=== PATIENT | male | born 1950 | race Caucasian/White ===

== ENCOUNTER 2024-06-01 06:12 | Emergency (ER) | payer MEDICARE, SELFPAY ==
[2024-06-01 06:15] VITALS: BP 173/72; PULSE 69; RESP 18; TEMP 36.6; O2SAT 99; BMI 24.0
[2024-06-01 06:32] LABS: Bacteria 0 SEEN /hpf (None Seen); Mucous, Urine 0 SEEN /hpf (<or=2+); Squamous Epithelial Cells - UA 0 SEEN /hpf (0-5); White Blood Cells 0 SEEN /hpf (0-5)
[2024-06-01 06:35] LABS: Color, Urine Yellow (Yellow); Glucose, Dipstick Normal (Normal); Ketone-Dipstick Negative (Negative); Leukocyte Esterase-Dipstick Negative /ul (Negative); Nitrite-Dipstick Negative (Negative); Occult Blood-Urine Negative /ul (Negative); Protein-Dipstick 15 mg/dl (Negative); Urine Bilirubin Dipstick Negative (Negative); Urine Clarity Clear (Clear); Urine Urobilinogen Normal (Normal)
--- NOTE | 2024-06-01 07:27 | EDS_ITS ---
HPI History of Present Illness Chief Complaint: Complaint Informant: patient Narrative Narrative: Patient is a 73-year-old male with history of BPH previously on finasteride but stopped secondary to side effect of constipation, presenting with lower abdominal discomfort, feeling that he needs to urinate and inability to urinate. Patient states he urinated before he went to bed last night but throughout the night could only dribble even though he felt that he needed to urinate further. Denies any dysuria. Denies any hematuria. Denies any recent fever or chills. Notes that over the past few days he has had weaker stream and sensation of incomplete emptying with urinary frequency. Notes over the past week he has been more active with using a chainsaw to cut wood including trees and has been having some back pain. That is worse with movement. Denies any other complaints at this time. Previously seeing urology with Ever Chambers. [facility] Medical History Enlarged prostate Home Medications ?Medication ?Instructions ?Recorded ?Last Taken ?Type NK 06/01/24 Unknown History Allergy/AdvReac Type Severity Reaction Status Date / Time meperidine (From Demerol) Allergy Other Verified 06/01/24 06:14 Surgical History Hx of shoulder surgery Social History Smoking Status: Former smoker ROS ROS ED Constitutional Constitutional ED: Denies chills or fever(s) Gastrointestinal Gastrointestinal: Reports abdominal pain; Denies nausea or vomiting Genitourinary Genitourinary ED: Reports urinary frequency and other Details: Difficulty urinating, weak stream, dribbling ; Denies dysuria or hematuria Musculoskeletal Musculoskeletal: Reports back pain; Denies arthralgias or myalgias Neurologic Neurologic: Denies paresthesias or weakness Hematologic/Lymphatic Hematologic/Lymphatic: Denies easy bleeding or easy bruising EXAM Physical Exam Const Vital Signs: 06/01/24 06:15 Temperature 97.8 F Temperature Source Oral Pulse Rate 69 Respiratory Rate 18 Blood Pressure 173/72 H Blood Pressure Mean 105 Pulse Ox 99 Oxygen Delivery Method Room Air Positive well nourished and well developed General Appearance ED: well developed and NAD HEENT Reports moist mucous membranes Neck supple Resp normal respiratory effort Cardio regular rate and regular rhythm GI non-tender Inspection: abdominal distention Palpation: soft Narrative: Nicole catheter in place. 1200 cc of yellow urine present. Extremity normal to inspection Neuro oriented x3 Sensorium / Orientation: alert Motor Exam: Negative for no movement abnormalities noted Psych mental status grossly normal Skin Lesions: no lesions Rashes: no rashes MDM MDM MDM Narrative Medical decision making narrative: Patient evaluated for acute urinary retention. Was quickly evaluated by nursing staff and found to have over 500 cc of urine and Nicole catheter placed. Patient had immediate/significant improvement of symptoms and discomfort. Has over 1200 cc of urine out. Urinalysis not consistent with infection. Will obtain a BMP to ensure that he does not have an MARCE associated this urine intention. I suspect there is component of acute on chronic urinary retention. Anticipate if kidney function is normal can be discharged home with Nicole catheter instructions and outpatient urology follow-up. Will be given referral to Dr. Camarena. Given return precautions. Patient verbalized agreement understand this plan. Lab Data Labs: Laboratory Results - last 24 hr 06/01/24 06:26 Urine Color Yellow Urine Clarity Clear Urine pH 7.0 Ur Specific [place] 1.010 Urine Protein 15 H Urine Glucose (UA) Normal Urine Ketones Negative Urine Occult Blood Negative Urine Nitrite Negative Urine Bilirubin Negative Urine Urobilinogen Normal Ur Leukocyte Esterase Negative Discharge Plan Triage Chief Complaint: Complaint ED Provider: Zahraa Mendes Dx/Rx/DC Orders Clinical Impression: Acute urinary retention Instructions: ED Nicole Catheter, Care, ED Urinary Retention, Male Prescriptions: No Action NK Primary Care Provider: Cricket Guillen Referrals: Cricket Guillen MD [Primary Care Provider] - August Camarena MD [Med Staff - Active Staff] - Activity Restrictions/Additional Instructions: Please call urology for close outpatient follow-up early next week. Generally the Nicole catheter needs to stay in place for around 5 days and sometimes longer to allow for inflammation of the prostate and bladder to go down. Please follow-up with urology and if you cannot get into urology you may follow-up with your primary care doctor for removal of Nicole catheter. Print Language: [place]ayan Disposition Disposition: Home, Self Care
[2024-06-01 07:54] LABS: Red Blood Cells-Urine 0 SEEN /hpf (0-5)
[2024-06-01 08:01] LABS: Anion Gap 11 (5-15); BUN 16 mg/dL (4-19); BUN/Creat Ratio 14.8 RATIO (10-20); Carbon Dioxide 24.3 mmol/L (21.0-32.0); Chloride 102 mmol/L (98-108); Creatinine, Serum 1.05 mg/dL (0.70-1.20); EST Glomerular Filtration Rate 75 (>60); Estimated Creatinine Clearance 67.73 ml/min (50-250); Glucose 133 mg/dL (70-99); Potassium 4.3 mmol/L (3.3-5.1); Sodium Level 137 mmol/L (133-145)
[2024-06-01 08:13] VITALS: BP 145/71; PULSE 56; O2SAT 99
[2024-06-01 08:17] VITALS: BP 145/71; PULSE 56; RESP 18; TEMP 36.6; O2SAT 99
== END 2024-06-01 08:35 | disposition home or self-care (01) ==
PROVIDERS: Emergency Provider Emergency Medicine; PCP Family Medicine; Visit Provider Emergency Medicine
DX: N40.1 Benign prostatic hyperplasia with lower urinary tract symptoms (principal); R33.8 Other retention of urine; R35.0 Frequency of micturition; M54.9 Dorsalgia, unspecified; Z87.891 Personal history of nicotine dependence
CPT/HCPCS: 51702; 80048; 81001; 99284; A4216

== ENCOUNTER 2024-06-01 11:37 | Emergency (ER) | payer MEDICARE, SELFPAY ==
[2024-06-01 11:38] VITALS: BP 170/86; PULSE 69; RESP 15; TEMP 36.8; O2SAT 97; BMI 23.7
--- NOTE | 2024-06-01 12:03 | EX.ED.DYSGE1 ---
HPI History of Present Illness Chief Complaint: Nicole C/O Informant: patient Onset/Context/Timing Onset: Today Context: Gradual Onset Timing: Continuous Quality: Burning Location: Suprapubic area Worsened by: Nothing Relieved by: Nothing Narrative Narrative: Patient presents with discomfort from his Nicole catheter. Patient was seen here earlier this morning and had a Nicole catheter placed for urinary retention. Patient states that when he left he felt like the catheter was pulling. Patient noted some discoloration of the urine. Patient felt a burning sensation over his bladder area. Patient states that catheter was still draining. Patient denies any fevers or chills. Patient denies any other complaints. [facility] Medical History Enlarged prostate Home Medications ?Medication ?Instructions ?Recorded ?Last Taken ?Type NK 06/01/24 Unknown History Allergy/AdvReac Type Severity Reaction Status Date / Time meperidine (From Demerol) Allergy Other Verified 06/01/24 11:39 Surgical History Hx of shoulder surgery Social History Smoking Status: Former smoker ROS ROS ED Constitutional Constitutional ED: Denies chills or fever(s) Eyes Eyes: Denies blurry vision or change in vision ENT ENT ED: Denies rhinorrhea or sore throat Cardiovascular Cardiovascular: Denies chest pain or palpitations Respiratory/Chest Respiratory/Chest: Denies cough or dyspnea Gastrointestinal Gastrointestinal: Denies nausea or vomiting Genitourinary Genitourinary ED: Reports dysuria and hematuria Musculoskeletal Musculoskeletal: Denies back pain or neck pain Integumentary Denies abscess or rash Neurologic Neurologic: Denies headache(s) or weakness Allergic/Immunologic Allergic/Immunologic ED: Denies mouth swelling or urticaria EXAM Physical Exam Const Vital Signs: 06/01/24 11:38 Temperature 98.2 F Temperature Source Temporal Pulse Rate 69 Respiratory Rate 15 Blood Pressure 170/86 H Blood Pressure Mean 114 Pulse Ox 97 Oxygen Delivery Method Room Air Positive well nourished and well developed General Appearance ED: well developed and NAD HEENT Reports moist mucous membranes Neck supple and no JVD GI non-distended Palpation: soft and tender suprapubic; Negative for guarding or rebound tenderness present Neuro oriented x3, CN's II-XII intact bilaterally and no sensory deficits noted Sensorium / Orientation: alert Motor Exam: strength 5/5 throughout Psych mental status grossly normal MDM MDM MDM Narrative Medical decision making narrative: The catheter and leg bag were readjusted. Patient was feeling better after this. Urine continued to flow into the bag. Patient was feeling better on reevaluation. Patient was instructed to follow-up with urology as scheduled. Patient understood and was agreeable with this plan. All questions were answered. Discharge Plan Triage Chief Complaint: Nicole C/O ED Provider: Raul Silvestre Dx/Rx/DC Orders Clinical Impression: Acute urinary retention, Elevated blood pressure reading Instructions: ED Nicole Catheter, Care Prescriptions: No Action NK Primary Care Provider: Cricket Guillen Referrals: Cricket Guillen MD [Primary Care Provider] - August Camarena MD [Med Staff - Active Staff] - 3-5 Days Print Language: Armenian Disposition Disposition: Home, Self Care
--- NOTE | 2024-06-01 12:54 | ED.RN ---
Approx 215 mL of jennifer urine drained from patients leg bag.
[2024-06-01 13:17] VITALS: BP 170/86; PULSE 69; RESP 15; TEMP 36.8; O2SAT 97
== END 2024-06-01 13:20 | disposition home or self-care (01) ==
PROVIDERS: Emergency Provider Emergency Medicine; PCP Family Medicine; Visit Provider Emergency Medicine
DX: Z46.6 Encounter for fitting and adjustment of urinary device (principal); N40.1 Benign prostatic hyperplasia with lower urinary tract symptoms; R33.8 Other retention of urine; R03.0 Elevated blood-pressure reading, without diagnosis of hypertension
CPT/HCPCS: 99282

== ENCOUNTER → 2024-07-25 | Outpatient (CLI) | payer MEDICARE, SELFPAY ==
[2024-07-25 10:08] LABS: PSA,Total - Annual Screen 8.02 ng/mL (0.02-4.00)
== END | disposition home or self-care (01) ==
LOC: LAB 08:56
PROVIDERS: PCP Family Medicine; Referring Provider Urology; Visit Provider Urology
DX: N40.1 Benign prostatic hyperplasia with lower urinary tract symptoms (principal)
CPT/HCPCS: 36415; 84153; G0103

== ENCOUNTER → 2025-01-22 | Outpatient (CLI) | payer MEDICARE, SELFPAY ==
[2025-01-22 10:27] LABS: PSA,Total- Diagnostic 4.29 ng/mL (0.00-4.00)
== END | disposition home or self-care (01) ==
LOC: LAB 08:45
PROVIDERS: PCP Family Medicine; Referring Provider Urology; Visit Provider Urology
DX: R97.20 Elevated prostate specific antigen [PSA] (principal)
CPT/HCPCS: 36415; 84153